=== PATIENT | male | born 1950 | race Caucasian/White ===

== ENCOUNTER 2020-06-02 09:55 | Outpatient (CLI) | payer MEDICARE, SELFPAY ==
--- NOTE | 2020-06-02 11:00 | NEURO_ITS ---
Patient Number: [id number] Impression: # Complains of left hand numbness and nocturnal pain. # Left moderate Carpal Tunnel Syndrome. # Left ulnar neuropathy across the elbow. # Normal needle/EMG exam. Nerve Conduction Studies Anti Sensory Summary Table Stim Site NR Peak (ms) P-T Amp (?V) Site1 Site2 Delta-P (ms) Dist (cm) Robert (m/s) Left Median Anti Sensory (2-3nd Digit) Wrist 4.5 9.6 Wrist 2-3nd Digit 4.5 14.0 31 Wrist 6.8 14.2 Wrist 2-3nd Digit 4.5 14.0 31 Left Radial Anti Sensory (Base 1st Digit) Wrist 2.0 18.8 Wrist Base 1st Digit 2.0 0.0 Left Ulnar Anti Sensory (5th Digit) Wrist 3.1 19.5 Wrist 5th Digit 3.1 14.0 45 Motor Summary Table Stim Site NR Onset (ms) O-P Amp (mV) Site1 Site2 Delta-0 (ms) Dist (cm) Robert (m/s) Left Median Motor (Abd Poll Brev) Wrist 6.0 1.3 Elbow Wrist 5.2 31.0 60 Elbow 11.2 0.5 Left Ulnar Motor (Abd Dig Minimi) Wrist 2.9 5.3 A Elbow Wrist 6.8 30.0 44 A Elbow 9.7 4.8 B Elbow Wrist 5.0 26.0 52 B Elbow 7.9 4.3 F Wave Studies NR F-Lat (ms) L-R F-Lat (ms) Left Median (Mrkrs) (Abd Poll Brev) 33.98 Left Ulnar (Mrkrs) (Abd Dig Min) 29.35 EMG Side Muscle Nerve Root Ins Act Fibs Amp Dur Recrt Comment Left 1stDorInt Ulnar C8-T1 Nml Nml Nml Nml Nml Left Ext Indicis Radial (Post Int) C7-8 Nml Nml Nml Nml Nml Left Ext Digitorum Radial (Post Int) C7-8 Nml Nml Nml Nml Nml Left BrachioRad Radial C5-6 Nml Nml Nml Nml Nml Left PronatorTeres Median C6-7 Nml Nml Nml Nml Nml Left Abd Poll Brev Median C8-T1 Nml Nml Nml Nml Nml Left ABD Dig Min Ulnar C8-T1 Nml Nml Nml Nml Nml MTDD
== END 2020-06-02 09:56 | disposition home or self-care (01) ==
PROVIDERS: PCP Family Medicine; Visit Provider Family Medicine
DX: R20.2 Paresthesia of skin (principal); G56.02 Carpal tunnel syndrome, left upper limb; G56.22 Lesion of ulnar nerve, left upper limb
CPT/HCPCS: 95886; 95909

== ENCOUNTER 2021-02-27 15:22 | Emergency (ER) | payer MEDICARE, SELFPAY ==
[2021-02-27 15:57] VITALS: BP 136/87; PULSE 80; RESP 16; TEMP 36.3; O2SAT 99
--- NOTE | 2021-02-27 16:05 | ED.GENADULT ---
HPI - General Adult General Chief complaint: Skin/Abscess/Foreign Body Stated complaint: abscess under right armpit Time Seen by Provider: 02/27/21 16:00 Source: patient and RN notes reviewed Mode of arrival: ambulatory Limitations: no limitations History of Present Illness HPI narrative: 70-year-old male presents with complaints of redness, tenderness, and swelling to the right armpit for the past 2 days. Sunny reports increased tenderness, swelling, and drainage over the past 24 hours. Tender to touch. No history of skin abscess or MRSA. No fever or chills. No abdominal pain, nausea, and vomiting. Tolerating liquids. Remains active. The patient reports he has not been diagnosed with COVID-19. The patient reports he received 2 Moderna COVID-19 vaccines. The patient reports he is not waiting for the results of a COVID-19 lab test. The patient reports he does not have sweats, weakness, or fatigue. The patient reports he does not have a new or worsening cough or shortness of breath. Denies chest pain. The patient reports he does not have any rhinorrhea, congestion, loss of taste or smell, sore throat, and diarrhea. Denies recent traveling. Denies concerns for COVID-19 or exposures. At this time, the patient is not suspected of having COVID-19. Some parts of this dictation were generated by voice recognition software and may contain typographical and/or grammatical inaccuracies. Related Data Home Medications Medication Instructions Recorded Confirmed multivitamin 1 tablet PO DAILY 02/16/21 02/16/21 Vitamin B12 02/27/21 Allergies Allergy/AdvReac Type Severity Reaction Status Date / Time No Known Allergies Allergy Verified 03/07/21 08:32 Review of Systems Review of Systems: Narrative: CONSTITUTIONAL: Denies fever, chills, sweats. EYES: Denies visual changes, redness, discharge. ENT: Denies rhinorrhea, congestion, sore throat, otalgia. CARDIOVASCULAR: Denies chest pain, palpitations, edema. RESPIRATORY: Denies dyspnea, wheezing, cough. GASTROINTESTINAL: Denies abdominal pain, nausea, vomiting, diarrhea. SKIN: Denies rash or itching. Right with redness, tenderness, swelling, and drainage to the right armpit. MUSCULOSKELETAL: Denies acute back pain, joint pain, or myalgia. NEUROLOGIC: Denies numbness or focal weakness. PSYCHIATRIC: Denies anxiety or depression. All systems reviewed & are unremarkable except as noted in HPI and below. [facility] Past Medical History Medical History Benign hypertension Broken wrist CKD (chronic kidney disease) stage 3, GFR 30-59 ml/min Erectile dysfunction Gouty arthropathy Herpes zoster Hypogonadism Surgical History Surgical History H/O right wrist surgery Family History Family History Sibling Acute myocardial infarction Family history of obesity Father Family history of congestive heart failure Social History Social History Smoking status: Former smoker Tobacco type: cigarettes Second hand tobacco smoke exposure: No Smoking end date: 09/10/81 Alcohol intake: current Substance use: never Substance use type: does not use Gender identity (if verbalized by the patient): Male Comments At time of signature, I have reviewed and agree with the nursing past medical, surgical, social, and family history. Please see the nursing chart for further information. There is no relevant family history pertinent to the presenting complaint. Exam Narrative: Exam Narrative: GENERAL: This is a well-nourished, well-developed patient, in no apparent distress. Talking in full sentences without deficit and ambulate with steady gait without dyspnea. HEAD: Normocephalic, atraumatic. EYES: PERRL. Sclera clear/white. Vision is grossly intact. NEC
--- NOTE | 2021-02-27 16:44 | PC.NURSE ---
hand profiler in to do i and d with wound cx.
== END 2021-02-27 17:05 | disposition home or self-care (01) ==
PROVIDERS: Emergency Provider Nurse Practitioner Family; PCP Family Medicine
DX: L02.411 Cutaneous abscess of right axilla (principal); Z87.891 Personal history of nicotine dependence; I12.9 Hypertensive chronic kidney disease with stage 1 through stage 4 chronic kidney disease, or unspecified chronic kidney disease; N18.30 Chronic kidney disease, stage 3 unspecified
CPT/HCPCS: 10060; 87070; 87075; 87076; 87205; 99213; G0463

== ENCOUNTER 2021-03-11 11:17 | Outpatient (CLI) | payer MEDICARE, SELFPAY ==
--- NOTE | ~2021-03-11 | XR_ITS ---
EXAMINATION: XR heel LT min 2V DATE: 03/11/2021 11:43 INDICATION: Left foot pain. TECHNIQUE: 2 views of left calcaneus were obtained. COMPARISON: None. FINDINGS: Bone alignment is normal. There is an avulsion fracture of anterior process of calcaneus. T here is mild osteoarthritis of talonavicular joint. There are enthesophytes at the posterior and plan tar aspects of calcaneal tuberosity. IMPRESSION: 1. Avulsion fracture of anterior process of calcaneus. Reviewed, dictated and finalized at location A.
== END 2021-03-11 11:18 | disposition home or self-care (01) ==
PROVIDERS: PCP Family Medicine
DX: S92.025A Nondisplaced fracture of anterior process of left calcaneus, initial encounter for closed fracture (principal); M19.072 Primary osteoarthritis, left ankle and foot
CPT/HCPCS: 73650

== ENCOUNTER 2022-06-15 01:04 | Day surgery (SDC) | payer MEDICARE, SELFPAY ==
[2022-05-30 10:23] VITALS: BMI 29.4
--- NOTE | 2022-06-14 15:25 | PM.HPGS ---
History of Present Illness History of Present Illness Consent: Risks, benefits, and alternatives have been discussed and questions answered. Patient agrees to proceed with procedure. Chief complaint: History of colon polyps Narrative: Sunny Salter is a 71 year old male referred for colon cancer screening. Four years ago he had removal of a polyp and has had prior polyps removed. Review of Systems Review of Systems: All systems reviewed & are unremarkable except as noted in HPI and below PMFSH Past Medical History Medical History Benign hypertension Broken wrist CKD (chronic kidney disease) stage 3, GFR 30-59 ml/min Elevated PSA Erectile dysfunction Gouty arthropathy Herpes zoster Hypogonadism Surgical History Surgical History H/O right wrist surgery Family History Family History Sibling Acute myocardial infarction Family history of obesity Father Family history of congestive heart failure Social History Social History Smoking status: Former smoker Tobacco type: cigarettes Second hand tobacco smoke exposure: No Smoking end date: 09/10/81 Alcohol intake: current Drinks per week: 2 Alcohol use details: seldom; once/month Substance use: current Substance use type: marijuana Living arrangements: with family Gender identity (if verbalized by the patient): Male Sexual Orientation (if Verbalized by the Patient): Straight or Heterosexual Spiritual care concerns: No Meds Home Medications and Allergies Home Medications Medication Instructions Recorded Confirmed Type simvastatin 10 mg tablet 10 mg PO DAILY #90 tabs 12/07/21 05/30/22 Rx allopurinol 300 mg tablet 300 mg PO DAILY #90 tabs 01/11/22 05/30/22 Rx indapamide 2.5 mg tablet 2.5 mg PO DAILY #90 tabs 01/11/22 05/30/22 Rx mecobalamin (vitamin B12) 1,000 1,000 mcg PO DAILY 05/30/22 05/30/22 History mcg chewable tablet lisinopril 30 mg tablet See Rx Instructions .Route 06/07/22 06/15/22 Rx .COMPLEX #90 tabs Allergies Allergy/AdvReac Type Severity Reaction Status Date / Time No Known Allergies Allergy Verified 06/15/22 08:44 Exam Const: General: alert Orientation/consciousness: patient oriented x3 Resp: Auscultation: clear to auscultation bilaterally Cardio: Rhythm: regular rhythm GI: GI Palp: Yes Soft to palpation and No Tenderness to palpation present (GI) Neuro: General: patient oriented x3 Assessment and Plan Assessment and plan (1) Colon cancer screening: Code(s): Z12.11 - Encounter for screening for malignant neoplasm of colon Status: Acute Assessment and Plan: Colonoscopy with possible biopsy or polypectomy or cautery or injection of substances.
[2022-06-15 08:45] VITALS: BP 134/79; PULSE 52; RESP 18; TEMP 36.6; O2SAT 100
[2022-06-15] MEDS: LACTATED RINGERS 1,000 ML 150 ML IV CONT (08:55)
--- NOTE | 2022-06-15 09:24 | P.PNAN_ITS ---
Anes - Initial Pre Proc Eval Procedure: Operation Date: 06/15/22 09:30 Proposed Procedures p Screening Colonoscopy - Tong Mcadams MD Date/Time: 06/15/22 09:24 Surgeon: Tong Mcadams MD Pre Op Diagnosis: History of colon polyps Patient Data Age: 71 Gender: M Height: 1.78 m Weight: 95.1 kg Last Vital Signs Temp 97.8 F 06/15/22 08:45 Pulse 52 L 06/15/22 08:45 Resp 18 06/15/22 08:45 BP 134/79 06/15/22 08:45 Pulse Ox 100 06/15/22 08:45 O2 Del Method Room Air 06/15/22 08:45 Allergies Allergy/AdvReac Type Severity Reaction Status Date / Time No Known Allergies Allergy Verified 06/15/22 08:44 Home Medications Medication Instructions Recorded Confirmed Type simvastatin 10 mg tablet 10 mg PO DAILY #90 tabs 12/07/21 05/30/22 Rx allopurinol 300 mg tablet 300 mg PO DAILY #90 tabs 01/11/22 05/30/22 Rx indapamide 2.5 mg tablet 2.5 mg PO DAILY #90 tabs 01/11/22 05/30/22 Rx mecobalamin (vitamin B12) 1,000 1,000 mcg PO DAILY 05/30/22 05/30/22 History mcg chewable tablet lisinopril 30 mg tablet See Rx Instructions .Route 06/07/22 06/15/22 Rx .COMPLEX #90 tabs Patient hx anesthesia problems: none Family hx anesthesia problems: none Results Review: All pre-operative results and documents have been reviewed as part of the pre- operative evaluation. [facility] Past Medical History Medical History Benign hypertension Broken wrist CKD (chronic kidney disease) stage 3, GFR 30-59 ml/min Elevated PSA Erectile dysfunction Gouty arthropathy Herpes zoster Hypogonadism Surgical History Surgical History H/O right wrist surgery Family History Family History Sibling Acute myocardial infarction Family history of obesity Father Family history of congestive heart failure Social History Social History Smoking status: Former smoker Tobacco type: cigarettes Second hand tobacco smoke exposure: No Smoking end date: 09/10/81 Alcohol intake: current Drinks per week: 2 Alcohol use details: seldom; once/month Substance use: current Substance use type: marijuana Living arrangements: with family Gender identity (if verbalized by the patient): Male Sexual Orientation (if Verbalized by the Patient): Straight or Heterosexual Spiritual care concerns: No Anes - Eval Final PreProcedure Day of Procedure 06/15/22 09:24 Patient weight: obese Airway: Mallampati scale class II ASA classification: III Emergent: no Anesthetic plan: proceed Anesthesia type and monitoring: general GIVS and standard monitoring Results Review: All pre-operative results and documents have been reviewed as part of the pre- operative evaluation. Informed Consent: The patient's anesthetic plan and its attendant risks and benefits were discussed with the patient/family/POA. Questions were solicited and answers provided to the satisfaction of the patient/family/POA.
[2022-06-15 09:57] VITALS: BP 106/73; PULSE 65; RESP 15; O2SAT 96
[2022-06-15 10:07] VITALS: BP 109/75; PULSE 63; RESP 17; O2SAT 96
[2022-06-15 10:17] VITALS: BP 122/86; PULSE 63; RESP 19; O2SAT 98
== END 2022-06-15 10:27 | disposition home or self-care (01) ==
PROVIDERS: PCP Family Medicine; Visit Provider Internal Medicine Gastroenterology
PROC: 0DJD8ZZ Inspection of Lower Intestinal Tract, Via Natural or Artificial Opening Endoscopic (ICD-10-PCS; CPT 45378; principal; 2022-06-15 09:30)
DX: Z12.11 Encounter for screening for malignant neoplasm of colon (principal); K62.1 Rectal polyp; K57.30 Diverticulosis of large intestine without perforation or abscess without bleeding; I12.9 Hypertensive chronic kidney disease with stage 1 through stage 4 chronic kidney disease, or unspecified chronic kidney disease; N18.30 Chronic kidney disease, stage 3 unspecified; R97.20 Elevated prostate specific antigen [PSA]; Z87.891 Personal history of nicotine dependence; F12.90 Cannabis use, unspecified, uncomplicated; E66.9 Obesity, unspecified; Z68.30 Body mass index [BMI] 30.0-30.9, adult; M10.9 Gout, unspecified; B02.9 Zoster without complications
CPT/HCPCS: 45380; 88305; J2704; J7120

== ENCOUNTER 2023-03-05 14:08 | Outpatient (CLI) | payer MEDICARE, SELFPAY ==
--- NOTE | ~2023-03-05 | US_ITS ---
EXAMINATION: US arterial ankle brachial ind DATE: 03/05/2023 15:03 INDICATION: Peripheral vascular disease. TECHNIQUE: Segmental pressures and plethysmographic and Doppler waveforms of the brachial and lower e xtremity arteries were obtained. COMPARISON: None. FINDINGS: Right and left brachial artery pressures of 131 mm Hg and 125 mm Hg, respectively, are concordant (no rmal difference <= 30 mmHg). The right ankle-brachial index (LUNA) is 1.23 (normal >= 0.9-1.0). The right great toe-brachial index (TBI) is 0.98 (normal >= 0.65). Arterial Doppler waveforms are biphasic with brisk systolic upstrokes at both right posterior tibial and dorsalis pedis arteries. The left LUNA is 1.25. The left TBI is 0.95. Arterial Doppler waveforms are biphasic with brisk systol ic upstrokes at both left posterior tibial and dorsalis pedis arteries. IMPRESSION: 1. No significant arterial occlusive disease to either lower limb with normal bilateral ABIs and TBIs . Reviewed, dictated and finalized at location A. IMPRESSION: 1. No significant arterial occlusive disease to either lower limb with normal b ilateral ABIs and TBIs.
== END 2023-03-05 14:09 | disposition home or self-care (01) ==
PROVIDERS: PCP Family Medicine; Visit Provider Physician Assistant Medical
DX: I73.9 Peripheral vascular disease, unspecified (principal)
CPT/HCPCS: 93922

== ENCOUNTER 2023-04-06 12:25 | Outpatient (CLI) | payer MEDICARE, SELFPAY ==
[2023-04-06 13:49] LABS: Prothrombin Time 13.2 Seconds (11.1-14.7)
[2023-04-06 13:50] LABS: Partial Thromboplastin Time 29.2 SECONDS (22.3-36.8)
== END 2023-04-06 12:26 | disposition home or self-care (01) ==
LOC: ANHSURGERY 12:28
PROVIDERS: Anesthesiology; PCP Family Medicine; Visit Provider Urology
DX: Z01.812 Encounter for preprocedural laboratory examination (principal); N18.30 Chronic kidney disease, stage 3 unspecified
CPT/HCPCS: 36415; 85610; 85730

== ENCOUNTER 2023-04-12 01:49 | Day surgery (SDC) | payer MEDICARE, SELFPAY ==
[2023-04-03 09:41] VITALS: BMI 33.2
--- NOTE | 2023-04-03 09:58 | PC.NURSE ---
Report to the Outpatient Waiting Room, entrance under the green pavilion located off [facility], at time __8:45AM on date __04/12/23 . Planned Procedure Time: __10:45AM . Time changes happen often and if your time is changed the preop area will call you the afternoon before. - You and your visitor will be asked to self-screen and do not enter if you have any COVID symptoms. - A mask is optional within the hospital at this time. Patients may have clear liquids (water, carbonated beverages, clear teas, apple juice) until 3 hours prior to surgery with a maximum of 20 ounces. - No food from midnight until time of surgery Take the following medications with a SIP of water the morning of surgery: ___NONE DO NOT STOP ANY OF YOUR OTHER PRESCRIPTION MEDICATIONS PRIOR TO SURGERY ?EXCEPT THE FOLLOWING Medications to discontinue per physician ___HOLD ALL VITAMINS/SUPPLEMENTS 3 DAYS PRE-OP PER ANESTHESIA Date to take last dose___04/08/23 Please no make-up, nail kinyarwanda, hairspray, perfume, deodorant, or body powder the day of surgery. No jewelry (including any body piercings) or valuables the day of surgery, leave them at home. Please take a shower or bath the night before, or the morning of, surgery with an antibacterial soap. Wear comfortable, loose fitting clothing. Children are encouraged to wear pajamas. - Jewelry must be removed prior to entering the operating room. Rings and piercings that are not removed may be cut off. - The hospital will not accept responsibility for valuables. - Please leave all valuables, including medications, at home the day of surgery. If you are going home after surgery, a licensed auto transport driver must drive you home. - NO public transportation without another adult if you receive anesthesia. - We recommend that an adult stay with you for 24 hours following discharge. - We also recommend that you do not drive, make important decision, drink alcoholic beverages, or take any drugs that were not prescribed by your health care provider for at least 24 hours after your discharge time. Follow any additional instructions given to you from your surgeon. If you or anyone in your household have experienced Covid symptoms in the past week, please notify your surgeon or the nurse liaison at the phone number below for possible testing. Telephone instructions given to _PATIENT and asked if any additional questions and then verbalized understanding. Patient advised to call surgeon office or pre surgery nurse liaison [phone] if any additional questions.
--- NOTE | 2023-04-06 11:28 | PM.HPGS ---
History of Present Illness History of Present Illness Consent: Risks, benefits, and alternatives have been discussed and questions answered. Patient agrees to proceed with procedure. Chief complaint: prostate cancer Narrative: Sunny Salter is a 72 year old male diagnosed with favorable intermediate risk prostate cancer approximately 1 year ago. He has opted for active surveillance and presents now for confirmatory biopsy. He had considerable pelvic pain with initial biopsy, answer decision to do this under sedation. He is aware the risk including, but not limited to, bacteremia/infection, hematuria or hematochezia. Review of Systems Review of Systems: All systems reviewed & are unremarkable except as noted in HPI and below PMFSH Past Medical History Medical History Benign hypertension Broken wrist CKD (chronic kidney disease) stage 3, GFR 30-59 ml/min Elevated PSA Erectile dysfunction Gouty arthropathy Herpes zoster Hypogonadism Surgical History Surgical History H/O right wrist surgery Family History Family History Sibling Acute myocardial infarction Family history of obesity Father Family history of congestive heart failure Social History Social History Smoking packs per day: 4 Smoking cigarettes per day: 80.0 Years smoked: 20 Smoking pack-years: 80.00 Smoking status: Former smoker Tobacco type: cigarettes Second hand tobacco smoke exposure: No Smoking end date: 03/10/81 Alcohol intake: current Drinks per week: 5 Alcohol use details: seldom; once/month Substance use: never Substance use type: marijuana Lack of Transportation: No Lack of Food: Never True Current Housing: I Have Housing Concerned About Future Housing: No Difficulty Paying Gas/Electric Bills: No Difficulty Paying for Meds: No Currently Unemployed: No Education: High School Diploma/GED Difficulty w/ Childcare or Family Care: No Living arrangements: with family Additional living arrangements comments: [employer] Occupation/Education: retired Gender identity (if verbalized by the patient): Male Sexual Orientation (if Verbalized by the Patient): Straight or Heterosexual Spiritual care concerns: No Meds Home Medications and Allergies Home Medications Medication Instructions Recorded Confirmed Type mecobalamin (vitamin B12) 1,000 1,000 mcg PO DAILY 05/30/22 04/03/23 History mcg chewable tablet allopurinol 300 mg tablet 300 mg PO DAILY #90 tabs 11/01/22 04/03/23 Rx indapamide 2.5 mg tablet 2.5 mg PO QAM 04/03/23 04/03/23 History lisinopril 30 mg tablet 30 mg PO QAM 04/03/23 04/03/23 History simvastatin 10 mg tablet 10 mg PO HS 04/03/23 04/03/23 History Allergies Allergy/AdvReac Type Severity Reaction Status Date / Time No Known Allergies Allergy Verified 04/03/23 09:38 Exam Const: General: no acute distress Resp: Effort & Inspection: normal respiratory effort GI: Inspection: non-distended GI Palp: No abdominal tenderness and No Guarding due to palpation present (GI) Auscultation: normal bowel sounds Assessment and Plan Assessment and plan (1) Prostate cancer: Code(s): C61 - Malignant neoplasm of prostate Status: Acute Assessment and Plan: Transrectal ultrasound and ultrasound-guided biopsy of the prostate
--- NOTE | 2023-04-11 14:02 | WPDANESEPPF ---
Anes - Initial Pre Proc Eval Procedure: Operation Date: 04/12/23 10:45 Proposed Procedures p Trans Rectal Prostate Biopsy - Dayton Tao MD Date/Time: 04/11/23 14:02 Surgeon: Dayton Tao MD Pre Op Diagnosis: prostate cancer Patient Data Age: 72 Gender: M Height: 1.78 m Weight: 105 kg Allergies Allergy/AdvReac Type Severity Reaction Status Date / Time No Known Allergies Allergy Verified 04/12/23 10:05 Home Medications Medication Instructions Recorded Confirmed Type mecobalamin (vitamin B12) 1,000 1,000 mcg PO DAILY 05/30/22 04/12/23 History mcg chewable tablet allopurinol 300 mg tablet 300 mg PO DAILY #90 tabs 11/01/22 04/12/23 Rx indapamide 2.5 mg tablet 2.5 mg PO QAM 04/03/23 04/12/23 History lisinopril 30 mg tablet 30 mg PO QAM 04/03/23 04/12/23 History simvastatin 10 mg tablet 10 mg PO HS 04/03/23 04/12/23 History Patient hx anesthesia problems: none Family hx anesthesia problems: none Results Review: All pre-operative results and documents have been reviewed as part of the pre-operative evaluation. [facility] Past Medical History Medical History (Updated 04/11/23 @ 14:03 by Radhames Villafuerte DO) Benign hypertension Broken wrist CKD (chronic kidney disease) stage 3, GFR 30-59 ml/min Elevated PSA Erectile dysfunction Gouty arthropathy Herpes zoster Hypogonadism Mixed hyperlipidemia Surgical History Surgical History H/O right wrist surgery Family History Family History Sibling Acute myocardial infarction Family history of obesity Father Family history of congestive heart failure Social History Social History Smoking packs per day: 4 Smoking cigarettes per day: 80.0 Years smoked: 20 Smoking pack-years: 80.00 Smoking status: Former smoker Tobacco type: cigarettes Second hand tobacco smoke exposure: No Smoking end date: 03/10/81 Alcohol intake: current Drinks per week: 5 Alcohol use details: seldom; once/month Substance use: never Substance use type: marijuana Lack of Transportation: No Lack of Food: Never True Current Housing: I Have Housing Concerned About Future Housing: No Difficulty Paying Gas/Electric Bills: No Difficulty Paying for Meds: No Currently Unemployed: No Education: High School Diploma/GED Difficulty w/ Childcare or Family Care: No Living arrangements: with family Additional living arrangements comments: [employer] Occupation/Education: retired Gender identity (if verbalized by the patient): Male Sexual Orientation (if Verbalized by the Patient): Straight or Heterosexual Spiritual care concerns: No Anes - Eval Final PreProcedure Day of Procedure 04/11/23 14:02 Patient weight: obese Heart: regular rate and rhythm Lungs: clear to auscultation Airway: Mallampati scale class II Neurological: alert and oriented Last oral intake: >/= 8 hours ASA classification: III Emergent: no Anesthetic plan: proceed Anesthesia type and monitoring: general GIVS and standard monitoring Results Review: All pre-operative results and documents have been reviewed as part of the pre-operative evaluation. Informed Consent: The patient's anesthetic plan and its attendant risks and benefits were discussed with the patient/family/POA. Questions were solicited and answers provided to the satisfaction of the patient/family/POA.
--- NOTE | 2023-04-12 06:37 | WPDHPUPDATE1 ---
History and Physical Update Update Date/Time: 04/12/23 06:37 History and Physical has been reviewed, including an updated exam of the patient. There are NO changes in the patient's condition. Risks, benefits, and alternatives have been discussed and questions answered. Patient agrees to proceed with procedure.
[2023-04-12 09:15] VITALS: BP 129/75; PULSE 62; RESP 16; TEMP 36.1; O2SAT 96
[2023-04-12] MEDS: LACTATED RINGERS 1,000 ML 30 ML IV CONT (09:15)
[2023-04-12] MEDS: ceFAZolin 2 GM/D5W 50 ML 2 GM/50 ML BAG IVPB (11:48)
[2023-04-12 12:16] VITALS: BP 108/59; PULSE 57; RESP 12; O2SAT 96
--- NOTE | 2023-04-12 12:17 | W.PM.PROC2 ---
Procedure Note - Detailed Date of Procedure 04/12/23 Pre-op Diagnosis Prostate cancer Post-op Diagnosis Same Procedure Performed Transrectal ultrasound ultrasound guided biopsy of the prostate Surgeon Dayton Tao MD Anesthesia MAC Description of Procedure The patient was place in a left lateral position after administration of systemic sedation by the anesthesia department. Transrectal ultrasound of the prostate is undertaken at 6.0Hz. The prostate capsule is intact and the tissue has a normal echo texture. There is a small median lobe and minimal PVR in the bladder. The seminal vesicles have a normal appearance ultrasonically. The prostate measured 47gm in size. Using ultrasound guidance a total of 12 biopsy cores are obtained. The ultrasound probe was removed and the patient was taken to the recovery room in good condition. Packing No Complications No immediate complications Condition Stable
[2023-04-12 12:45] VITALS: BP 119/76; PULSE 48; RESP 12; O2SAT 100
[2023-04-12 13:15] VITALS: BP 119/77; PULSE 55; RESP 12
[2023-04-12 13:30] VITALS: BP 126/79; PULSE 48; RESP 12
== END 2023-04-12 13:40 | disposition home or self-care (01) ==
PROVIDERS: PCP Family Medicine; Visit Provider Urology
PROC: (CPT 55700; principal; 2023-04-12 10:45)
DX: C61 Malignant neoplasm of prostate (principal); I12.9 Hypertensive chronic kidney disease with stage 1 through stage 4 chronic kidney disease, or unspecified chronic kidney disease; N18.30 Chronic kidney disease, stage 3 unspecified; E78.2 Mixed hyperlipidemia; M10.9 Gout, unspecified; Z87.891 Personal history of nicotine dependence; E66.9 Obesity, unspecified; Z68.33 Body mass index [BMI] 33.0-33.9, adult
CPT/HCPCS: 55700; 76942; 36415; 85610; 85730; G0416; J0690; J2704; J3010; J7120

== ENCOUNTER 2023-04-23 13:24 | Outpatient (CLI) | payer MEDICARE, SELFPAY ==
--- NOTE | ~2023-04-23 | PE_ITS ---
EXAMINATION: PET_PETPSMAST_PT DATE: 04/23/2023 15:44 INDICATION: Prostate cancer TECHNIQUE: 9.871 mCi of pipflufolastat F-18 (18-F-DCFPyL) was administered i.v. Low dose computed to mography (CT) images were acquired from the base of the brain to the base of the brain to the proxima l thighs for attenuation correction and anatomic localization. Positron emission tomography (PET) deanne ges were acquired in the same distribution beginning 95 minutes after injection. Images including fus ed PET/CT images were reconstructed in axial, coronal, and sagittal planes. Automated exposure contro l technique was employed. The dose-length product was 737.29mGy-cm. COMPARISON: None FINDINGS: Head/neck: Typical pattern of symmetric physiologic increased activity in the lacrimal, parotid and submandibula r glands as well as along the mucosa of the nasal and oral cavities, the omaira-, naso- and hypopharynx, the glottis and esophagus. Typical pattern of physiologic uptake at the lateral ganglia seen is symm etric tiny foci of mild uptake at the cervical neural foramina. No pathologically enlarged cervical l ymphadenopathy or suspicious foci of increased uptake in the visualized head or neck. Chest: No suspicious pulmonary nodules, pneumonia or pleural effusion. Borderline heart size. Atheroscleroti c coronary artery calcific location. Thoracic aorta is normal in caliber. No pathologically enlarged or PSMA avid thoracic lymphadenopathy. Abdomen/pelvis/proximal thighs: Physiologic renal accumulation and excretion of activity in the kidneys, bladder and along portions o f ureters. Photopenic defects associated with bilateral low-attenuation renal cysts the largest on th e right measuring 4.3 cm. Normal degree and slightly heterogenous pattern of increased uptake through out the liver and spleen without radiologic correlate or dominant PSMA avid lesion. The gallbladder, pancreas and bilateral adrenal glands are normal. Moderate uptake scattered throughout the bowels wit h typical duodenal and proximal jejunal predominance and without radiologic correlate, also likely ph ysiologic. Normal appendix. A few scattered colonic diverticula without adjacent from trace stranding to suggest diverticulitis. Additional tiny foci of mild uptake at the neural foramina in the lower t horacic and lumbosacral spine. There is a subcentimeter focus of moderate uptake with maximal SUV of 9.5 cm at the left posterior inferolateral aspect of the enlarged prostate consistent with primary pr ostate cancer. There is a second subcentimeter focus of mild uptake more cephalad along the posterior midline of the prostate caudal to the level of the seminal vesicles and could not exclude a second f ocus of disease. No other abnormal foci of increased uptake or pathologically enlarged lymphadenopath y in the abdomen, pelvis or proximal thighs. Musculoskeletal: There is mild synovial uptake at the recess of the bilateral glenohumeral joints. No suspicious lytic , blastic or PSMA avid bone lesions. IMPRESSION: 1. 2 small foci of increased uptake in the prostate consistent with primary prostate cancer. No evide nt metastatic disease. Reviewed, dictated and finalized at location A. IMPRESSION: 1. 2 small foci of increased uptake in the prostate consistent with primary pro state cancer. No evident metastatic disease.
== END 2023-04-23 13:25 | disposition home or self-care (01) ==
PROVIDERS: PCP Family Medicine; Visit Provider Urology
DX: C61 Malignant neoplasm of prostate (principal)
CPT/HCPCS: 78815; A9595

== ENCOUNTER 2023-06-12 13:50 | Outpatient (CLI) | payer MEDICARE, SELFPAY ==
--- NOTE | ~2023-06-12 | XR_ITS ---
EXAMINATION: XR chest 2V DATE: 06/12/2023 15:30 INDICATION: Malignant neoplasm of the prostate for preoperative testing TECHNIQUE: PA and lateral views of the chest were obtained. COMPARISON: PET/CT dated 04/23/2023 FINDINGS: The lungs are clear with no focal airspace opacities, pulmonary edema, pleural effusion or pneumothor ax. The cardiomediastinal silhouette is normal. bridging osteophytes at multiple levels consistent wi th diffuse idiopathic skeletal hyperostosis (DISH). IMPRESSION: 1. No acute cardiopulmonary disease. Reviewed, dictated and finalized at location A.
--- NOTE | 2023-06-12 15:00 | ECG_ITS ---
Measurements Intervals [place] Rate: 71 P: 31 NH: 167 QRS: 28 QRSD: 97 T: 7 QT: 384 QTc: 419 Interpretive Statements SINUS RHYTHM CANNOT RULE OUT SEPTAL MYOCARDIAL INFARCTION [40+ ms Q WAVE IN V1/V2], OF INDETERMINATE AGE NO PREVIOUS ECG AVAILABLE FOR COMPARISON Electronically Signed On 06-12-2023 15:52:56 CDT by Eileen Peralta M.D.
[2023-06-12 15:21] LABS: Appearance Urine Clear (Clear); Bilirubin Urine Negative (Negative); Blood Urine Negative (Negative); Color Urine Yellow (Yellow); Glucose Urine UA Negative (Negative); Ketones Urine Negative (Negative); Leukocyte Esterase Ur Negative LEU/UL (Negative); Nitrate Urine Negative (Negative); Protein Urine Negative (Negative); Specific Grav Ur 1.022 (1.001-1.035); Urobilinogen Urine 0.2 mg/dL (<2.0)
[2023-06-12 15:27] LABS: Basophils Absolute Auto 0.1 K/mm3 (0.0-0.1); Basophils Percent Auto 0.7 % (0.2-1.2); Eosinophils Absolute Auto 0.2 K/mm3 (0-0.3); Eosinophils Percent Auto 2.9 % (0-4.4); Hematocrit 47.3 % (42.0-52.0); Hemoglobin 16.5 g/dL (14.0-18.0); Immature Granulocyte Absolute 0.05 K/mm3 (0.00-0.031); Immature Granulocyte Percent A 0.7 % (0-0.5); Lymphocytes Absolute Auto 1.31 K/mm3 (0.9-3.2); Lymphocytes Percent Auto 17.2 % (18.3-44.2); Mean Corpuscular HGB Conc 34.9 g/dl (32-36); Mean Corpuscular Hemoglobin 34.3 pg (26-34); Mean Corpuscular Volume 98.3 fl (80-100); Mean Platelet Volume 8.5 fl (7.4-10.4); Monocytes Absolute Auto 0.6 K/mm3 (0.1-0.6); Monocytes Percent Auto 7.5 % (2.6-8.5); Neutrophils Absolute Auto 5.4 K/mm3 (1.3-6.7); Platelet Count Result 217 k/mm3 (150-375); Red Blood Count 4.81 M/mm3 (4.6-6.20); Red Cell Distribution Width 12.7 % (11.5-14.5); White Blood Count 7.6 K/mm3 (4.5-10.0)
[2023-06-12 15:29] LABS: Alanine Aminotransferase 30 U/L (6-50); Albumin Level 4.8 g/dL (3.5-5.1); Alkaline Phosphatase 66 U/L (38-126); Anion Gap 8 mmol/L (8-16); Aspartate Amino Transferase 41 U/L (17-59); Bilirubin,Total 0.7 mg/dL (0.2-1.3); Blood Urea Nitrogen 30 mg/dL (9-20); Calcium 9.6 mg/dL (8.4-10.2); Carbon Dioxide 28 mmol/L (22-30); Chloride 103 mmol/L (98-107); Estimated Glomerular Filt Rate 54; Glucose 105 mg/dL (65-110); Potassium 3.7 mmol/L (3.4-5.0); Sodium 139 mmol/L (137-145)
[2023-06-12 15:31] LABS: Add Urine Microscopic? NO
[2023-06-12 15:41] LABS: Prothrombin Time 13.8 Seconds (11.1-14.7)
[2023-06-12 15:42] LABS: Partial Thromboplastin Time 29.7 SECONDS (22.3-36.8)
== END 2023-06-12 13:51 | disposition home or self-care (01) ==
LOC: ANHSURGERY 13:53
PROVIDERS: PCP Family Medicine; Visit Provider Urology
DX: C61 Malignant neoplasm of prostate (principal); Z01.818 Encounter for other preprocedural examination
CPT/HCPCS: 36415; 71046; 80053; 81003; 85025; 85610; 85730; 86850; 86900; 86901; 93005

== ENCOUNTER 2023-06-21 00:22 | Day surgery (SDC) | payer MEDICARE, SELFPAY ==
--- NOTE | 2023-06-07 16:13 | PM.IMHP ---
H&P: HPI History of Present Illness Date/Time: 06/07/23 16:13 Chief Complaint: Prostate cancer Narrative: pleasant 72-year-old who was originally found to have a favorable intermediate risk prostate cancer after a biopsy in March 2022 showed 1 of 12 cores with [place] 3+4=7. We initially adopted a course of active surveillance. As part of that a confirmatory biopsy a year later was obtained. This demonstrated a significant risk progression, now showing 8 of 12 cores with [place] 3 + 4 and 3+5 adenocarcinoma. A staging PSA PET showed uptake only in the prostate without suspicion of metastatic disease. His prostate volume was 53 g. After discussion of options including ongoing active surveillance, androgen deprivation, radiation therapy and its various forms and radical prostatectomy he is elected for the latter. He is aware the risk of this including, but not limited to, adverse cardiopulmonary events, rectal injury, need for additional therapy, incontinence and erectile dysfunction. Review of Systems Cardiovascular: Cardiovascular: Denies chest pain, Denies lightheadedness, Denies palpitations and Denies dyspnea Respiratory: Respiratory: Denies dyspnea Gastrointestinal: Gastrointestinal: Denies diarrhea, Denies nausea and Denies vomiting Genitourinary: Genitourinary: Denies hematuria and Denies dysuria Endocrine: Endocrine: Denies palpitations [facility] Past Medical History Medical History (Updated 04/16/23 @ 10:48 by Georgette Ott PA-C) Abscess Benign hypertension Broken wrist CKD (chronic kidney disease) stage 3, GFR 30-59 ml/min Elevated glucose Encounter for recheck of abscess following incision and drainage Erectile dysfunction Gouty arthropathy Herpes zoster Hypogonadism Mixed hyperlipidemia Surgical History Surgical History H/O right wrist surgery Family History Family History Sibling Acute myocardial infarction Family history of obesity Father Family history of congestive heart failure Social History Social History Smoking packs per day: 4 Smoking cigarettes per day: 80.0 Years smoked: 20 Smoking pack-years: 80.00 Smoking status: Former smoker Tobacco type: cigarettes Second hand tobacco smoke exposure: No Smoking end date: 03/10/81 Alcohol intake: current Drinks per week: 5 Alcohol use details: seldom; once/month Substance use: never Substance use type: marijuana Lack of Transportation: No Lack of Food: Never True Current Housing: I Have Housing Concerned About Future Housing: No Difficulty Paying Gas/Electric Bills: No Difficulty Paying for Meds: No Currently Unemployed: No Education: High School Diploma/GED Difficulty w/ Childcare or Family Care: No Living arrangements: with family Additional living arrangements comments: [employer] Occupation/Education: retired Gender identity (if verbalized by the patient): Male Sexual Orientation (if Verbalized by the Patient): Straight or Heterosexual Spiritual care concerns: No Meds Home Medications and Allergies Home Medications Medication Instructions Recorded Confirmed Type mecobalamin (vitamin B12) 1,000 1,000 mcg PO DAILY 05/30/22 04/12/23 History mcg chewable tablet allopurinol 300 mg tablet 300 mg PO DAILY #90 tabs 11/01/22 04/12/23 Rx indapamide 2.5 mg tablet 2.5 mg PO QAM 04/03/23 04/12/23 History lisinopril 30 mg tablet 30 mg PO QAM 04/03/23 04/12/23 History simvastatin 10 mg tablet 10 mg PO 04/03/23 04/12/23 History Allergies Allergy/AdvReac Type Severity Reaction Status Date / Time No Known Allergies Allergy Verified 04/12/23 10:05 Exam Const: General: no acute distress Resp: Effort & Inspection: normal respiratory effort GI: Inspection: non-distended GI Palp: No abdominal tenderness
[2023-06-12 14:06] VITALS: BP 145/85; PULSE 89; RESP 16; TEMP 36.4; O2SAT 95; BMI 33.1
--- NOTE | 2023-06-12 14:20 | PC.NURSE ---
Report to the Outpatient Waiting Room, entrance under the green pavilion located off [facility], at time ___6:00AM____ on date ___06/21/23____. Planned Procedure Time: ___7:30AM . Time changes happen often and if your time is changed the preop area will call you the afternoon before. - You and your visitor will be asked to self-screen and do not enter if you have any COVID symptoms. - A mask is optional within the hospital at this time. Patients may have clear liquids (water, carbonated beverages, clear teas, apple juice) until 3 hours prior to surgery with a maximum of 20 ounces. - No food from midnight until time of surgery. Take the following medications with a SIP of water the morning of surgery: ____NONE DO NOT STOP ANY OF YOUR OTHER PRESCRIPTION MEDICATIONS PRIOR TO SURGERY ?EXCEPT THE FOLLOWING Medications to discontinue per physician HOLD ALL VITAMINS/SUPPLEMENTS 7 DAYS PRE-OP PER DR VILLALPANDO Date to take last dose__06/14/23 Please no make-up, nail romansh, hairspray, perfume, deodorant, or body powder the day of surgery. No jewelry (including any body piercings) or valuables the day of surgery, leave them at home. Please take a shower or bath the night before, or the morning of, surgery with an antibacterial soap. Wear comfortable, loose fitting clothing. - Jewelry must be removed prior to entering the operating room. Rings and piercings that are not removed may be cut off. - The hospital will not accept responsibility for valuables. - Please leave all valuables, including medications, at home the day of surgery. If you are going home after surgery, a licensed route relief driver must drive you home. - NO public transportation without another adult if you receive anesthesia. - We recommend that an adult stay with you for 24 hours following discharge. - We also recommend that you do not drive, make important decision, drink alcoholic beverages, or take any drugs that were not prescribed by your health care provider for at least 24 hours after your discharge time. Follow any additional instructions given to you from your surgeon. If you or anyone in your household have experienced Covid symptoms in the past week, please notify your surgeon or the nurse liaison at the phone number below for possible testing. Telephone instructions given to __PATIENT and asked if any additional questions and then verbalized understanding. Patient advised to call surgeon office or pre surgery nurse liaison [phone] if any additional questions.
[2023-06-21] VITALS (14 sets, daily range): BP systolic 131–164; BP diastolic 77–97; PULSE 79–104; RESP 10–20; TEMP 35.8–36.7; O2SAT 94–100; BMI 32.8
--- NOTE | 2023-06-21 06:27 | WPDHPUPDATE1 ---
History and Physical Update Update Date/Time: 06/21/23 06:27 History and Physical has been reviewed, including an updated exam of the patient. There are NO changes in the patient's condition. Risks, benefits, and alternatives have been discussed and questions answered. Patient agrees to proceed with procedure.
[2023-06-21] MEDS: LACTATED RINGERS 1,000 ML 30 ML IV CONT ×2 (06:45→10:35)
--- NOTE | 2023-06-21 07:04 | WPDANESEPPF ---
Anes - Initial Pre Proc Eval Procedure: Operation Date: 06/21/23 07:30 Proposed Procedures p Robotic Assisted Laparoscopic Prostatectomy with Bilateral Pelvic Lymph Node Dissection - Dayton Tao MD Date/Time: 06/21/23 07:04 Surgeon: Dayton Tao MD Pre Op Diagnosis: Prostate CA Patient Data Age: 72 Gender: M Height: 1.78 m Weight: 103.6 kg Last Vital Signs Temp 98.1 F 06/21/23 06:09 Pulse 79 06/21/23 06:09 Resp 20 06/21/23 06:09 BP 146/87 H 06/21/23 06:09 Pulse Ox 96 06/21/23 06:09 O2 Del Method Room Air 06/21/23 06:09 Allergies Allergy/AdvReac Type Severity Reaction Status Date / Time No Known Allergies Allergy Verified 06/21/23 06:05 Home Medications Medication Instructions Recorded Confirmed Type mecobalamin (vitamin B12) 1,000 1,000 mcg PO DAILY 05/30/22 06/21/23 History mcg chewable tablet allopurinol 300 mg tablet 300 mg PO DAILY #90 tabs 11/01/22 06/21/23 Rx indapamide 2.5 mg tablet 2.5 mg PO QAM 04/03/23 06/21/23 History lisinopril 30 mg tablet 30 mg PO QAM 04/03/23 06/21/23 History simvastatin 10 mg tablet 10 mg PO HS 04/03/23 06/21/23 History Patient hx anesthesia problems: none Family hx anesthesia problems: none Results Review: All pre-operative results and documents have been reviewed as part of the pre-operative evaluation. [facility] Past Medical History Medical History (Updated 04/16/23 @ 10:48 by Georgette Ott PA-C) Abscess Benign hypertension Broken wrist CKD (chronic kidney disease) stage 3, GFR 30-59 ml/min Elevated glucose Encounter for recheck of abscess following incision and drainage Erectile dysfunction Gouty arthropathy Herpes zoster Hypogonadism Mixed hyperlipidemia Surgical History Surgical History H/O right wrist surgery Family History Family History Sibling Acute myocardial infarction Family history of obesity Father Family history of congestive heart failure Social History Social History (Reviewed 02/22/23 @ 09:36 by Gem Marx [facility]) Smoking packs per day: 3 Smoking cigarettes per day: 60.0 Years smoked: 20 Smoking pack-years: 60.00 Smoking status: Former smoker Tobacco type: cigarettes Second hand tobacco smoke exposure: No Smoking end date: 03/10/81 Alcohol intake: current Drinks per week: 4 Alcohol use details: seldom; once/month Substance use: never Substance use type: marijuana Lack of Transportation: No Lack of Food: Never True Current Housing: I Have Housing Concerned About Future Housing: No Difficulty Paying Gas/Electric Bills: No Difficulty Paying for Meds: No Currently Unemployed: No Education: High School Diploma/GED Difficulty w/ Childcare or Family Care: No Living arrangements: with family Additional living arrangements comments: Occupation/Education: retired Gender identity (if verbalized by the patient): Male Sexual Orientation (if Verbalized by the Patient): Straight or Heterosexual Spiritual care concerns: No Anes - Eval Final PreProcedure Day of Procedure 06/21/23 07:04 Patient weight: obese Heart: regular rate and rhythm Lungs: clear to auscultation Airway: Mallampati scale class II Neurological: alert and oriented Last oral intake: >/= 8 hours ASA classification: III Emergent: no Anesthetic plan: proceed Anesthesia type and monitoring: general ETT and standard monitoring Results Review: All pre-operative results and documents have been reviewed as part of the pre-operative evaluation. Informed Consent: The patient's anesthetic plan and its attendant risks and benefits were discussed with the patient/family/POA. Questions were solicited and answers provided to the satisfaction of the patient/family/POA.
[2023-06-21] MEDS: ceFAZolin 2 GM/D5W 50 ML 2 GM/50 ML BAG IVPB (07:27)
--- NOTE | 2023-06-21 10:24 | W.PM.PROC2 ---
Procedure Note - Detailed Date of Procedure 06/21/23 Pre-op Diagnosis Prostate CA Post-op Diagnosis Same Procedure Performed Robotic assisted radical prostatectomy, bilateral pelvic lymphadenectomy Surgeon Dayton Tao MD Anesthesia General Description of Procedure The patient was brought to the operative suite, where he was prepped and draped in routine sterile fashion while in a dorsal lithotomy, deep Trendelenburg position. A supraumbilical 10 mm trocar was placed after insufflation of the abdomen with a Veress needle. Three robotic ports were then placed under direct vision. Two of these were placed in the right lower quadrant - 10 cm and 20 cm lateral to, and in line with, the umbilicus. A third robotic trocar was placed 10 cm to the left of the umbilicus, and 20 cm to the left of the umbilicus, a 12 mm standard laparoscopic trocar was placed to be used as an community program assistant port. Lastly, a 5 mm trocar was placed in the left upper quadrant midway between the umbilicus and the left robotic trocar. Attention was then turned to the prostatectomy. I opted for a posterior approach in this patient. An incision was made in the parietal peritoneum along the posterior bladder/posterior prostate about 2 cm above the reflection of the peritoneum over the anterior rectum. The seminal vesicles and vas deferens were immediately identified. Dissection is undertaken in a fashion so as to avoid electrocautery as much as possible, particularly near the tips of the seminal vesicles. Dissection was also carried out in the midline so as to avoid any encounters with the ureters. The vas deferens and the seminal vesicles were dissected in their entirety to the base of the prostate. The plane anterior to Denoviller's fascia, anterior to the rectum and posterior to the prostate was then developed. I then dropped the bladder by incising the anterior parietal peritoneum just lateral to the median umbilical ligaments bilaterally. The bladder was dropped from the anterior abdominal and pelvic wall. The endopelvic fascia was identified and incised bilaterally, allowing for dissection of the posterior-lateral aspect of the prostate. The puboprostatic ligaments were transected near their origin from the posterior pubic ramus. This posterior lateral dissection of the prostate is also undertaken in a fashion so as to avoid electrocautery as much as possible. The dorsal vein of the penis is then secured with an 0 -Vicryl ligature. Attention is then turned to the bladder neck. The anterior bladder neck is incised at the vesico-prostatic junction. The previously placed urethral catheter was drawn through the urethrotomy. A very small bladder neck was maintained throughout the remainder of this dissection. The posterior bladder neck was incised in a fashion so as to avoid any injury to the ureteral orifices. Again, the small aperture of the bladder neck was maintained. The previously dissected vas deferens and the seminal vesicles were brought through the posterior bladder neck incision. The lateral prostatic pedicles were then carefully dissected from the lateral aspect of the prostate bilaterally. The prostatic pedicles were secured with Weck clips and transected. The neurovascular bundles were carefully dissected from the posterior-lateral aspect of the prostate. The dorsal vein of the penis was incised with electrocautery. Using cold scissors, the urethra was incised. After withdrawing the previously placed urethral catheter, the posterior urethra was sharply incised, as was the rectalurethralis muscle. Attention was then turned to an extended bilateral pelvic lymphadenectomy. The limits of this dissection were similar bilaterally. Specifically, the limits were the bifurcation of the common iliac vein proximally, the inguinal ligament distally, the obturator nerve posteriorly and the anterior aspect to the external iliac artery laterally. This dissection was undertaken w
[2023-06-21] MEDS: fentaNYL CITRATE INJ (*CRX) 100 MCG/2 ML VIAL 25 MCG IV PUSH ×8 (10:50→11:15)
[2023-06-21] MEDS: ONDANSETRON INJ 4 MG/2 ML VIAL IV PUSH (11:40)
[2023-06-21] MEDS: HYDROmorphone HCL INJ (*CRX) 1 MG/ML SYR 0.25 MG IV PUSH (11:50)
[2023-06-21] MEDS: LACTATED RINGERS 1,000 ML 125 ML IV CONT (13:16)
--- NOTE | 2023-06-21 13:17 | ADMGEN ---
This patient, Sunny Salter, was admitted to Medical Room 348-01. Patient/family oriented to hospital policies and general routines including ID bracelet, bed and alarms, visiting hours, pain management, procedures, bathroom and other care routines, personal items, smoking policy, room service/diet, and visiting hours. Information on how to activate the Rapid Response Team has been discussed. Patient/Family are encouraged to report perceived risks to care and to ask questions if they do not understand what they are told or what they should do.
[2023-06-21] MEDS: BENZOCAINE/MENTHOL (*BKC) 18 EA LOZENGE 1 LOZENGE PO (18:09)
[2023-06-21] MEDS: DOCUSATE SODIUM 100 MG CAPSULE PO (18:09)
[2023-06-21] MEDS: SIMVASTATIN 10 MG TABLET PO (20:27)
[2023-06-22] MEDS: LACTATED RINGERS 1,000 ML 125 ML IV CONT
[2023-06-22 02:18] VITALS: BP 147/74; PULSE 80; RESP 16; TEMP 36.8; O2SAT 93
[2023-06-22 05:40] LABS: Hemoglobin 13.2 g/dL (14.0-18.0)
[2023-06-22 05:58] VITALS: BP 136/70; PULSE 83; RESP 18; TEMP 36.9; O2SAT 95
[2023-06-22 06:00] LABS: Anion Gap 3 mmol/L (8-16); Blood Urea Nitrogen 21 mg/dL (9-20); Calcium 8.9 mg/dL (8.4-10.2); Carbon Dioxide 31 mmol/L (22-30); Chloride 101 mmol/L (98-107); Estimated CRCL calculation 56 ml/min; Estimated Glomerular Filt Rate 54; Glucose 132 mg/dL (65-110); Potassium 4.1 mmol/L (3.4-5.0); Sodium 135 mmol/L (137-145)
--- NOTE | 2023-06-22 07:57 | WPDUROPN2 ---
Progress Note: A&P Assessment and Plan (1) Prostate cancer: Code(s): C61 - Malignant neoplasm of prostate Status: Acute Assessment and Plan: Doing well POD #1 Increase diet/ambulation Anticipate discharge later this morning Subjective Subjective Date/Time Seen: 06/22/23 07:57 Interval history: Comfortable, tolerating reg. diet. Review of Systems Cardiovascular: Cardiovascular: Denies chest pain, Denies lightheadedness, Denies palpitations and Denies dyspnea Respiratory: Respiratory: Denies dyspnea Gastrointestinal: Gastrointestinal: Denies diarrhea, Denies nausea and Denies vomiting Genitourinary: Genitourinary: Denies hematuria and Denies dysuria Endocrine: Endocrine: Denies palpitations Exam Const: General: no acute distress Resp: Effort & Inspection: normal respiratory effort GI: Inspection: non-distended GI Palp: No abdominal tenderness and No Guarding due to palpation present (GI) Auscultation: normal bowel sounds Objective Data Vital Signs Vital Signs: Vital Signs - 24 hr 06/21/23 10:35 06/21/23 10:50 06/21/23 11:05 Temperature 97.9 F Pulse Rate 90 88 91 Respiratory Rate 14 16 12 Blood Pressure 140/84 159/90 H 158/95 H Pulse Oximetry 96 98 97 Oxygen Delivery Simple Face Mask Nasal Cannula Nasal Cannula Oxygen Flow Rate 8 2 2 06/21/23 11:20 06/21/23 11:35 06/21/23 11:50 Temperature Pulse Rate 93 91 91 Respiratory Rate 10 L 12 14 Blood Pressure 153/86 H 164/97 H 131/87 Pulse Oximetry 97 100 96 Oxygen Delivery Nasal Cannula Nasal Cannula Nasal Cannula Oxygen Flow Rate 2 2 2 06/21/23 12:13 06/21/23 12:28 06/21/23 12:58 Temperature 97.5 F L 97.5 F L 97.5 F L Pulse Rate 95 95 96 Respiratory Rate 18 18 18 Blood Pressure 146/90 H 157/94 H 155/91 H Pulse Oximetry 98 97 97 Oxygen Delivery Oxygen Flow Rate 06/21/23 15:05 06/21/23 18:22 06/21/23 21:58 Temperature 96.5 F L 97.4 F L 96.4 F L Pulse Rate 98 104 H 102 H Respiratory Rate 16 18 16 Blood Pressure 148/89 H 147/77 H 136/77 Pulse Oximetry 98 100 94 Oxygen Delivery Oxygen Flow Rate 06/21/23 22:24 06/22/23 02:18 06/22/23 05:58 Temperature 96.4 F L 98.3 F 98.4 F Pulse Rate 102 H 80 83 Respiratory Rate 16 16 18 Blood Pressure 136/77 147/74 H 136/70 Pulse Oximetry 94 93 95 Oxygen Delivery Oxygen Flow Rate Intake/Output Intake/Output: Intake & Output 06/19/23 06/20/23 06/21/23 06/22/23 23:59 23:59 23:59 23:59 Intake Total 2430 940 Output Total 500 1800 Balance 1930 -860 Meds/Results Medications: Active Medications Generic Name Dose Route Start Last Admin Trade Name Freq PRN Reason Stop Dose Admin Allopurinol 300 mg 06/22/23 09:00 Allopurinol 300 Mg Tablet PO DAILY TRINH Benzocaine 1 lozenge 06/21/23 15:46 06/21/23 18:09 Benzocaine/Menthol (*Bkc) 18 Ea Lozenge PO 1 lozenge PRN PRN Administration Sore Throat Docusate Sodium 100 mg 06/21/23 17:00 06/21/23 18:09 Docusate Sodium 100 Mg Capsule PO 100 mg BID TRINH Administration Hyoscyamine 0.125 mg 06/21/23 12:13 Hyoscyamine Sulfate 0.125 Mg Tablet SUBLINGUAL Q4H PRN Bladder Spasm Lactated Ringer's 1,000 mls @ 125 mls/hr 06/21/23 12:13 06/22/23 00:00 Lr - Lactated Ringers Iv IV CONT 125 mls/hr .Q8H TRINH Administration Indapamide 2.5 mg 06/22/23 09:00 Indapamide 2.5 Mg Tablet PO QAM TRIN[facility] Ketorolac Tromethamine 15 mg 06/21/23 12:13 Ketorolac 15 Mg/Ml Vial (*Bkc) IV PUSH 06/22/23 12:12 Q6H PRN Pain Rated 4-6 Levofloxacin 500 mg 06/22/23 09:00 Levofloxacin 500 Mg Tablet PO DAILY [facility] Lisinopril 30 mg 06/22/23 09:00 Lisinopril 10 Mg Tablet PO QAM [facility] Naloxone HCl 0.1 mg 06/21/23 12:13 Naloxone Hcl 0.4 Mg/Ml Vial IV PUSH Q2M PRN Opiate Reversal Simvastatin 10 mg 06/21/23 21:00 06/21/23 20:27 Simvastatin 10 Mg Tablet PO 10 mg HS TRIN[facility] Administration Lab
[2023-06-22] MEDS: levoFLOXacin 500 MG TABLET PO (09:16)
[2023-06-22] MEDS: INDAPAMIDE 2.5 MG TABLET PO (09:16)
[2023-06-22] MEDS: DOCUSATE SODIUM 100 MG CAPSULE PO (09:16)
[2023-06-22] MEDS: allopurinoL 300 MG TABLET PO (09:16)
[2023-06-22] MEDS: lisinopriL 10 MG TABLET 30 MG PO (09:17)
[2023-06-22 10:02] VITALS: O2SAT 95
[2023-06-22 10:31] VITALS: BP 122/69; PULSE 86; RESP 18; TEMP 36.4; O2SAT 97
--- NOTE | 2023-06-22 11:57 | P.DS_ITS ---
DS: Admitting Diagnosis Discharge Date 06/22/2023 Admitting Diagnosis Prostate cancer DS: Discharge Diagnosis Discharge Diagnosis (1) Prostate cancer: Code(s): C61 - Malignant neoplasm of prostate Status: Acute DS: Summary Hospital Course Hospital Course: This patient was admitted on the morning of his planned robotic prostatectomy. This procedure was uneventful, as was his postoperative course. By the evening of the procedure he was sitting at the bedside in tolerating a liquid diet. The following morning he was ambulating freely and tolerating regular food. His catheter drainage remained essentially clear throughout. His postoperative hem oglobin and serum creatinine were unremarkable. At the time of discharge he has been instructed in appropriate care for his Jara catheter with both a leg bag and bedside bag. He will be discharged with plans to follow-up in 1 week with a cystogram. Time Spent with Patient Time attestation: Total time spent providing and/or coordinating discharge services: DS: Data Data Completed and Pending Pending studies at discharge: Pending at discharge 06/21/23 08:51 Surgical [PTH] Routine Labs on day of discharge: Labs from last 24 hours 06/22/23 05:20 Hgb 13.2 L D Hct 38.0 L Sodium 135 L Potassium 4.1 Chloride 101 Carbon Dioxide 31 H Anion Gap 3 L BUN 21 H Creatinine 1.30 Estim Creat Clear Calc 56 Estimated GFR 54 L Glucose 132 H Calcium 8.9 Discharge Plan Discharge Patient Disposition: Home, Self-Care Discharge Instructions: 1) Jara catheter -> leg bag / bedside bag at night. 2) No lifting/straining >15lbs. x3 weeks. 3) No driving x1-week. 4) Resume normal, pre-operative diet. 5) My office will contact regarding follow-up in 1-week with cystogram. Stand Alone Forms: General Discharge Instructions Discharge Orders: Discharge Order (Routine); Ordered 06/22/23 Ordered By: Dayton Tao Discharge Medications: New docusate sodium [Colace] 100 mg capsule 100 mg PO DAILY Qty: 30 0RF hydrocodone-acetaminophen 5-325 mg tablet 1 - 2 tablet PO Q6H PRN (Reason: pain) Qty: 20 0RF hyoscyamine sulfate 0.125 mg tablet 0.125 mg PO Q6H PRN (Reason: bladder spasms) Qty: 20 2RF cephalexin 500 mg capsule 500 mg PO Q8H Qty: 9 0RF Continued mecobalamin (vitamin B12) 1,000 mcg Tablet,Chewable 1,000 mcg PO DAILY indapamide 2.5 mg tablet 2.5 mg PO QAM simvastatin 10 mg tablet 10 mg PO HS Rx Instructions: take in evening lisinopril 30 mg tablet 30 mg PO QAM Rx Instructions: TAKE 1 TABLET EVERY DAY allopurinol 300 mg tablet 300 mg PO DAILY Qty: 90 3RF
== END 2023-06-22 13:15 | disposition home or self-care (01) ==
LOC: ANHSURGERY 07:57 → ANH3MED 12:46
PROVIDERS: PCP Family Medicine; Visit Provider Urology
PROC: 0VT04ZZ Resection of Prostate, Percutaneous Endoscopic Approach (ICD-10-PCS; CPT 55867; principal; 2023-06-21 07:30)
DX: C61 Malignant neoplasm of prostate (principal); I12.9 Hypertensive chronic kidney disease with stage 1 through stage 4 chronic kidney disease, or unspecified chronic kidney disease; N18.30 Chronic kidney disease, stage 3 unspecified; E78.2 Mixed hyperlipidemia; M10.9 Gout, unspecified; Z87.891 Personal history of nicotine dependence; E66.9 Obesity, unspecified; Z68.32 Body mass index [BMI] 32.0-32.9, adult
CPT/HCPCS: 55866; 38571; S2900; 36415; 71046; 80048; 80053; 81003; 85014; 85018; 85025; 85610; 85730; 86850; 86900; 86901; 88305; 88309; 93005; A9270; J0330; J0690; J1100; J1170; J2250; J2405; J2704; J3010; J7030; J7120

== ENCOUNTER 2023-06-29 11:58 | Outpatient (CLI) | payer MEDICARE, SELFPAY ==
--- NOTE | ~2023-06-29 | XR_ITS ---
EXAMINATION: CYSTOGRAM DATE: 06/29/2023 12:28 INDICATION: Status post prostatectomy TECHNIQUE: Initial stonecutter assistant radiograph of the pelvis was performed. There was retrograde administration of Omnipaque 350 mixed with saline contrast into patient's existing Jara catheter. Fluoroscopic deanne ges of the pelvis were obtained. A post-void image was also performed. Fluoroscopy exposure time was 0.5 minutes. FINDINGS: Contrast fills the bladder which demonstrates a normal contour with no mucosal irregularities. No anahi dent extraluminal contrast extravasation. No evident vesicoureteral reflux. Couple phleboliths in the left hemipelvis. IMPRESSION: 1. Normal post prostatectomy cystogram with no extraluminal contrast extravasation. Reviewed, dictated and finalized at location A. IMPRESSION: 1. Normal post prostatectomy cystogram with no extraluminal contrast extravasa tion.
== END 2023-06-29 11:59 | disposition home or self-care (01) ==
PROVIDERS: PCP Family Medicine; Visit Provider Urology
DX: C61 Malignant neoplasm of prostate (principal); Z98.890 Other specified postprocedural states
CPT/HCPCS: 51600; 74430; Q9967